=== PATIENT | female | born 1985 | race African-American/Black ===

== ENCOUNTER 2017-03-24 06:21 | Emergency (ER) | payer MEDICAID ==
[2016-01-11 14:29] VITALS: BMI 39.0
[~2017-03-24 06:21] MED LIST: ASPIRIN325 MG PO; NORVASC5 MG PO
== END 2017-03-24 07:54 | disposition home or self-care (01) ==
LOC: D.ER 06:21
DX: J20.9 Acute bronchitis, unspecified (principal); R09.1 Pleurisy; I10 Essential (primary) hypertension; F17.200 Nicotine dependence, unspecified, uncomplicated

== ENCOUNTER 2017-03-25 04:40 | Emergency (ER) | payer MEDICAID ==
[2016-01-11 14:29] VITALS: BMI 39.0
[2017-03-25 05:58] LABS: BASOPHILS 0.4 % (0-2); EOSINOPHILS 0.5 % (0-7); HEMATOCRIT 38.4 % (36.0-48.0); HEMOGLOBIN 12.9 g/dL (12-16); IMMATURE GRANULOCYTES 0.3 % (0-5); LYMPHOCYTES 24.9 % (15-50); MCHC 33.6 g/dL (31.0-37.0); MCV 95.3 fL (80.0-100.0); MEAN PLATELET VOLUME 10.7 fL (7.4-10.4); NEUTROPHILS 65.9 % (40-80); RBC 4.03 10x6/uL (4.00-5.40); RDW 13.4 % (11.5-14.5); WBC 7.3 10x3/uL (4.8-10.8)
[2017-03-25 06:07] LABS: PLATELET COUNT 244 10x3/uL (130-400)
[2017-03-25 06:16] LABS: ALBUMIN 3.6 g/dL (3.4-5.0); ALKALINE PHOSPHATASE 53 U/L (46-116); ALT (SGPT) 31 U/L (10-68); CALC OSMOLALITY 283 mosm/kg (275-300); CALCIUM 8.3 mg/dL (8.5-10.1); CARBON DIOXIDE 23.9 mmol/L (21.0-32.0); CHLORIDE - SERUM 109 mmol/L (98-107); CREATININE - SERUM 1.2 mg/dL (0.6-1.3); GLUCOSE 96 mg/dL (74-106); PROTEIN - SERUM 6.8 g/dL (6.4-8.2); SODIUM 142 mmol/L (136-145); UREA NITROGEN 14 mg/dL (7-18); eGFR NON AFRICAN AMERICAN 55 mL/min (90-120)
[2017-03-25 06:27] LABS: CKMB 1.4 U/L (0.0-3.6); CREATINE KINASE 151 UL (21-215); TROPONIN-I < 0.017 ng/mL (0.000-0.060)
== END 2017-03-25 06:30 | disposition home or self-care (01) ==
LOC: D.ER 04:40
PROVIDERS: Emergency Medicine
DX: R09.1 Pleurisy (principal); I10 Essential (primary) hypertension; F17.200 Nicotine dependence, unspecified, uncomplicated

== ENCOUNTER 2017-03-29 00:19 | Emergency (ER) | payer MEDICAID ==
[2016-01-11 14:29] VITALS: BMI 39.0
== END 2017-03-29 01:32 | disposition home or self-care (01) ==
LOC: D.ER 00:19
DX: J20.9 Acute bronchitis, unspecified (principal); J01.90 Acute sinusitis, unspecified; F17.200 Nicotine dependence, unspecified, uncomplicated; I10 Essential (primary) hypertension

== ENCOUNTER 2017-09-30 10:17 | Emergency (ER) | payer SELFPAY ==
[2016-01-11 14:29] VITALS: BMI 39.0
== END 2017-09-30 13:31 | disposition home or self-care (01) ==
LOC: D.ER 10:17
DX: S69.92XA Unspecified injury of left wrist, hand and finger(s), initial encounter (principal); X58.XXXA Exposure to other specified factors, initial encounter; Y93.89 Activity, other specified; Y92.019 Unspecified place in single-family (private) house as the place of occurrence of the external cause; I10 Essential (primary) hypertension

== ENCOUNTER 2017-10-30 07:53 | Emergency (ER) | payer MEDICAID ==
[2016-01-11 14:29] VITALS: BMI 39.0
== END 2017-10-30 09:38 | disposition home or self-care (01) ==
LOC: D.ER 07:53
DX: J06.9 Acute upper respiratory infection, unspecified (principal); F17.200 Nicotine dependence, unspecified, uncomplicated

== ENCOUNTER 2017-11-21 09:40 | Emergency (ER) | payer MEDICAID | END 2017-11-21 11:39 | disposition home or self-care (01) | LOC: D.ER 09:40 | DX: J11.1 Influenza due to unidentified influenza virus with other respiratory manifestations (principal); B34.9 Viral infection, unspecified; F17.200 Nicotine dependence, unspecified, uncomplicated ==

== ENCOUNTER 2018-01-22 06:34 | Emergency (ER) | payer OTHER ==
[2016-01-11 14:29] VITALS: BMI 39.0
[2018-01-22 07:37] LABS: BASOPHILS 0.4 % (0-2); EOSINOPHILS 0.6 % (0-7); HEMATOCRIT 38.9 % (36.0-48.0); HEMOGLOBIN 12.9 g/dL (12-16); LYMPHOCYTES 31.6 % (15-50); MCH 31.3 pg (26.0-34.0); MCHC 33.2 g/dL (31.0-37.0); MCV 94.4 fL (80.0-100.0); MEAN PLATELET VOLUME 10.3 fL (7.4-10.4); MONOCYTES 9.9 % (2-11); NEUTROPHILS 57.5 % (40-80); RBC 4.12 10x6/uL (4.00-5.40); RDW 13.9 % (11.5-14.5); WBC 5.3 10x3/uL (4.8-10.8)
[2018-01-22 07:39] LABS: PLATELET COUNT 310 10x3/uL (130-400)
[2018-01-22 07:47] LABS: INR 0.97 (0.85-1.17); PROTIME 12.5 SECONDS (11.6-15.0)
[2018-01-22 07:49] LABS: APTT 30.4 SECONDS (22.8-39.4)
[2018-01-22 07:50] LABS: D-DIMER-QUANTITATIVE < 0.27 ug/mLFEU (0.20-0.54)
[2018-01-22 07:52] LABS: ALBUMIN 3.4 g/dL (3.4-5.0); ALKALINE PHOSPHATASE 50 U/L (46-116); ALT (SGPT) 36 U/L (10-68); BILIRUBIN - TOTAL 0.41 mg/dL (0.2-1.3); CALC OSMOLALITY 274 mosm/kg (275-300); CALCIUM 8.2 mg/dL (8.5-10.1); CARBON DIOXIDE 24.2 mmol/L (21.0-32.0); CHLORIDE - SERUM 106 mmol/L (98-107); CREATININE - SERUM 0.6 mg/dL (0.6-1.3); GLUCOSE 87 mg/dL (74-106); PROTEIN - SERUM 7.1 g/dL (6.4-8.2); SODIUM 139 mmol/L (136-145); UREA NITROGEN 8 mg/dL (7-18); eGFR NON AFRICAN AMERICAN > 90 mL/min (90-120)
[2018-01-22 07:53] LABS: POTASSIUM - SERUM 5.2 mmol/L (3.5-5.1)
[2018-01-22 08:04] LABS: CKMB 0.3 U/L (0.0-3.6); CREATINE KINASE 185 UL (21-215); TROPONIN-I < 0.017 ng/mL (0.000-0.060)
== END 2018-01-22 11:02 | disposition home or self-care (01) ==
LOC: D.ER 06:34
PROVIDERS: Emergency Medicine; Family Medicine
DX: J20.9 Acute bronchitis, unspecified (principal); R07.9 Chest pain, unspecified; F17.200 Nicotine dependence, unspecified, uncomplicated; R05 Cough

== ENCOUNTER 2018-02-01 11:25 | Emergency (ER) | payer OTHER ==
[2016-01-11 14:29] VITALS: BMI 39.0
[2018-02-01 12:03] LABS: BASOPHILS 0.4 % (0-2); EOSINOPHILS 0.8 % (0-7); HEMATOCRIT 36.8 % (36.0-48.0); HEMOGLOBIN 12.3 g/dL (12-16); IMMATURE GRANULOCYTES 0.2 % (0-5); MCH 31.7 pg (26.0-34.0); MCHC 33.4 g/dL (31.0-37.0); MCV 94.8 fL (80.0-100.0); MONOCYTES 6.5 % (2-11); NEUTROPHILS 48.1 % (40-80); PLATELET COUNT 254 10x3/uL (130-400); RBC 3.88 10x6/uL (4.00-5.40); RDW 13.8 % (11.5-14.5); WBC 4.8 10x3/uL (4.8-10.8)
[2018-02-01 12:24] LABS: ALBUMIN 3.2 g/dL (3.4-5.0); ALKALINE PHOSPHATASE 47 U/L (46-116); ALT (SGPT) 27 U/L (10-68); CALC OSMOLALITY 282 mosm/kg (275-300); CALCIUM 8.4 mg/dL (8.5-10.1); CARBON DIOXIDE 24.9 mmol/L (21.0-32.0); CHLORIDE - SERUM 109 mmol/L (98-107); CREATININE - SERUM 0.7 mg/dL (0.6-1.3); GLUCOSE 91 mg/dL (74-106); POTASSIUM - SERUM 3.7 mmol/L (3.5-5.1); PROTEIN - SERUM 6.2 g/dL (6.4-8.2); SODIUM 143 mmol/L (136-145); UREA NITROGEN 7 mg/dL (7-18); eGFR NON AFRICAN AMERICAN > 90 mL/min (90-120)
[2018-02-01 12:35] LABS: CHOL - HDL RATIO 2.7 ratio (2.3-4.1); CHOLESTEROL, TOTAL 145 mg/dL (0-200); CKMB 0.7 U/L (0.0-3.6); CREATINE KINASE 70 UL (21-215); HDL CHOLESTEROL 53 mg/dL (32-96); LDL CHOLESTEROL 85 mg/dL (0-100); LDL-HDL RATIO 1.6 ratio (1.5-3.5); TRIGLYCERIDE 36 mg/dL (30-200); TROPONIN-I < 0.017 ng/mL (0.000-0.060)
== END 2018-02-01 13:20 | disposition home or self-care (01) ==
LOC: D.ER 11:25
PROVIDERS: Emergency Medicine
DX: R07.89 Other chest pain (principal); F17.200 Nicotine dependence, unspecified, uncomplicated

== ENCOUNTER 2018-04-24 18:02 | Emergency (ER) | payer SELFPAY ==
[~2018-04-24] VITALS: Ht 160 cm; Wt 90.9 kg
[2018-04-24 18:28] VITALS: Ht 160 cm; Wt 90.9 kg
[2018-04-24] MEDS ORDERED: TORADOL10 MG PO (21:21)
[2018-04-24 21:43] VITALS: BP 120/77
== END 2018-04-24 21:44 | disposition home or self-care (01) ==
LOC: D.ER 18:02
DX: S83.91XA Sprain of unspecified site of right knee, initial encounter (principal); W10.9XXA Fall (on) (from) unspecified stairs and steps, initial encounter; Y93.89 Activity, other specified; Y92.019 Unspecified place in single-family (private) house as the place of occurrence of the external cause; I10 Essential (primary) hypertension; F17.200 Nicotine dependence, unspecified, uncomplicated

== ENCOUNTER 2018-04-30 08:34 | Emergency (ER) | payer SELFPAY ==
[~2018-04-30] VITALS: Ht 160 cm; Wt 90.9 kg
[~2018-04-30 08:34] MED LIST changes: +TORADOL10 MG PO
[2018-04-30 08:52] VITALS: Ht 160 cm; Wt 90.9 kg
[2018-04-30 09:29] LABS: BASOPHILS 0.3 % (0-2); EOSINOPHILS 0.3 % (0-7); HEMATOCRIT 36.6 % (36.0-48.0); HEMOGLOBIN 12.4 g/dL (12-16); IMMATURE GRANULOCYTES 0.3 % (0-5); LYMPHOCYTES 22.5 % (15-50); MCHC 33.9 g/dL (31.0-37.0); MCV 94.3 fL (80.0-100.0); NEUTROPHILS 70.6 % (40-80); PLATELET COUNT 289 10x3/uL (130-400); RBC 3.88 10x6/uL (4.00-5.40); RDW 13.4 % (11.5-14.5); WBC 6.5 10x3/uL (4.8-10.8)
[2018-04-30 09:42] LABS: HCG SERUM NEGATIVE (NEGATIVE)
[2018-04-30 09:47] LABS: ALBUMIN 3.6 g/dL (3.4-5.0); ALKALINE PHOSPHATASE 56 U/L (46-116); ALT (SGPT) 32 U/L (10-68); BILIRUBIN - TOTAL 0.59 mg/dL (0.2-1.3); CALC OSMOLALITY 276 mosm/kg (275-300); CALCIUM 8.5 mg/dL (8.5-10.1); CARBON DIOXIDE 28.3 mmol/L (21.0-32.0); CHLORIDE - SERUM 107 mmol/L (98-107); CREATININE - SERUM 0.6 mg/dL (0.6-1.3); GLUCOSE 90 mg/dL (74-106); POTASSIUM - SERUM 3.6 mmol/L (3.5-5.1); PROTEIN - SERUM 6.8 g/dL (6.4-8.2); SODIUM 140 mmol/L (136-145); UREA NITROGEN 8 mg/dL (7-18); eGFR NON AFRICAN AMERICAN > 90 mL/min (90-120)
[2018-04-30] MEDS ORDERED: HYDROCODONE-APA1 TAB PO (11:30)
[2018-04-30 12:48] VITALS: BP 125/72
== END 2018-04-30 13:11 | disposition home or self-care (01) ==
LOC: D.ER 08:34
PROVIDERS: Family Medicine
DX: S82.141A Displaced bicondylar fracture of right tibia, initial encounter for closed fracture (principal); W19.XXXA Unspecified fall, initial encounter; Y93.89 Activity, other specified; Y92.019 Unspecified place in single-family (private) house as the place of occurrence of the external cause; I10 Essential (primary) hypertension; F17.200 Nicotine dependence, unspecified, uncomplicated

== ENCOUNTER 2018-05-28 22:16 | Emergency (ER) | payer SELFPAY ==
[~2018-05-28] VITALS: Ht 157.5 cm; Wt 90.9 kg
[~2018-05-28 22:16] MED LIST changes: +HYDROCODONE-APA1 TAB PO
[2018-05-28 22:20] VITALS: Ht 157.5 cm; Wt 90.9 kg
[2018-05-29] MEDS ORDERED: ULTRAM50 MG PO (00:56)
[2018-05-29 01:28] VITALS: BP 132/85
== END 2018-05-29 01:23 | disposition home or self-care (01) ==
LOC: D.ER 22:16
DX: S83.91XA Sprain of unspecified site of right knee, initial encounter (principal); X50.1XXA Overexertion from prolonged static or awkward postures, initial encounter; Y93.89 Activity, other specified; Y92.019 Unspecified place in single-family (private) house as the place of occurrence of the external cause; F17.200 Nicotine dependence, unspecified, uncomplicated

== ENCOUNTER 2019-04-05 08:05 | Emergency (ER) | payer MEDICAID ==
[~2019-04-05 08:05] MED LIST changes: +ULTRAM50 MG PO
[2019-04-05 08:10] VITALS: BMI 37.6
[2019-04-05 08:50] LABS: BASOPHILS 0.2 % (0-2); EOSINOPHILS 0.2 % (0-7); HEMATOCRIT 36.9 % (36.0-48.0); HEMOGLOBIN 12.7 g/dL (12-16); IMMATURE GRANULOCYTES 0.2 % (0-5); LYMPHOCYTES 10.3 % (15-50); MCH 31.8 pg (26.0-34.0); MCHC 34.4 g/dL (31.0-37.0); MCV 92.5 fL (80.0-100.0); MEAN PLATELET VOLUME 9.9 fL (7.4-10.4); MONOCYTES 8.8 % (2-11); NEUTROPHILS 80.3 % (40-80); PLATELET COUNT 292 10x3/uL (130-400); RBC 3.99 10x6/uL (4.00-5.40); RDW 13.1 % (11.5-14.5); WBC 13.2 10x3/uL (4.8-10.8)
[2019-04-05 08:59] LABS: ALBUMIN 3.6 g/dL (3.4-5.0); ALKALINE PHOSPHATASE 67 U/L (46-116); ALT (SGPT) 24 U/L (10-68); BILIRUBIN - TOTAL 1.06 mg/dL (0.2-1.3); CALC OSMOLALITY 277 mosm/kg (275-300); CALCIUM 9.1 mg/dL (8.5-10.1); CARBON DIOXIDE 25.4 mmol/L (21.0-32.0); CHLORIDE - SERUM 105 mmol/L (98-107); CREATININE - SERUM 0.7 mg/dL (0.6-1.3); GLUCOSE 100 mg/dL (74-106); POTASSIUM - SERUM 3.6 mmol/L (3.5-5.1); PROTEIN - SERUM 7.3 g/dL (6.4-8.2); SODIUM 140 mmol/L (136-145); UREA NITROGEN 9 mg/dL (7-18); eGFR NON AFRICAN AMERICAN > 90 mL/min (90-120)
[2019-04-05 09:03] LABS: AMYLASE - SERUM 30 U/L (25-115); LIPASE 50 U/L (73-393); TROPONIN-I < 0.017 ng/mL (0.000-0.060)
[2019-04-05 09:08] LABS: APPEARANCE HAZY (CLEAR); BACTERIA FEW /hpf (NONE SEEN); BILIRUBIN NEGATIVE (NEGATIVE); COLOR YELLOW (YELLOW); EPITHELIAL CELLS 0-5 /hpf (0-5); GLUCOSE NEGATIVE (NEGATIVE); KETONE NEGATIVE (NEGATIVE); NITRITE NEGATIVE (NEGATIVE); PROTEIN NEGATIVE (NEGATIVE); SPECIFIC GRAVITY 1.005 (1.005-1.020); WHITE CELLS - URINE 0-5 /hpf (0-5)
[2019-04-05 09:09] LABS: MUCUS <1+ /lpf (NONE SEEN)
[2019-04-05 09:31] LABS: HCG URINE NEGATIVE (NEGATIVE)
[2019-04-05 12:09] VITALS: BP 124/71
== END 2019-04-05 12:00 | disposition home or self-care (01) ==
LOC: D.ER 08:05
PROVIDERS: Family Medicine
DX: R10.9 Unspecified abdominal pain (principal)

== ENCOUNTER 2020-03-20 05:31 | Emergency (ER) | payer MEDICAID ==
[~2020-03-20] VITALS: Ht 157.5 cm; Wt 102.3 kg
[2020-03-20 05:33] VITALS: Ht 157.5 cm; Wt 102.3 kg
[2020-03-20 06:02] LABS: BASOPHILS 0.4 % (0-2); EOSINOPHILS 1.1 % (0-7); HEMATOCRIT 40.5 % (36.0-48.0); HEMOGLOBIN 13.6 g/dL (12-16); LYMPHOCYTES 23.1 % (15-50); MCH 31.9 pg (26.0-34.0); MCHC 33.6 g/dL (31.0-37.0); MCV 95.1 fL (80.0-100.0); MEAN PLATELET VOLUME 10.6 fL (7.4-10.4); MONOCYTES 11.4 % (2-11); PLATELET COUNT 308 10x3/uL (130-400); RBC 4.26 10x6/uL (4.00-5.40); RDW 13.4 % (11.5-14.5); WBC 5.3 10x3/uL (4.8-10.8)
[2020-03-20 06:05] LABS: HCG URINE NEGATIVE (NEGATIVE)
[2020-03-20 06:13] LABS: UDS - AMPHET POSITIVE QUAL (NEGATIVE); UDS - BARB NEGATIVE QUAL (NEGATIVE); UDS - BENZO NEGATIVE QUAL (NEGATIVE); UDS - COCAINE NEGATIVE QUAL (NEGATIVE); UDS - OPIATE NEGATIVE QUAL (NEGATIVE); UDS - PCP NEGATIVE QUAL (NEGATIVE); UDS - THC POSITIVE QUAL (NEGATIVE)
[2020-03-20 06:21] LABS: BILIRUBIN NEGATIVE (NEGATIVE); GLUCOSE NEGATIVE (NEGATIVE); KETONE NEGATIVE (NEGATIVE); NITRITE NEGATIVE (NEGATIVE); UROBILINOGEN 4 mg/dL (NORMAL)
[2020-03-20 06:22] LABS: ALBUMIN 3.6 g/dL (3.4-5.0); ALKALINE PHOSPHATASE 64 U/L (30-120); ALT (SGPT) 67 U/L (10-68); AMYLASE - SERUM 33 U/L (25-115); CALC OSMOLALITY 275 mosm/kg (275-300); CALCIUM 8.4 mg/dL (8.5-10.1); CARBON DIOXIDE 30.1 mmol/L (21.0-32.0); CHLORIDE - SERUM 103 mmol/L (98-107); CKMB 1.8 U/L (0.0-3.6); CREATINE KINASE 130 UL (21-215); CREATININE - SERUM 1.1 mg/dL (0.6-1.3); GLUCOSE 72 mg/dL (74-106); LIPASE 60 U/L (73-393); PROTEIN - SERUM 6.9 g/dL (6.4-8.2); SODIUM 139 mmol/L (136-145); THYROID STIMULATING HORMONE 0.36 uIU/mL (0.36-3.74); UREA NITROGEN 10 mg/dL (7-18); eGFR NON AFRICAN AMERICAN 60 mL/min (90-120)
[2020-03-20 06:22] LABS: EPITHELIAL CELLS 0-5 /hpf (0-5); RED CELLS - URINE RARE /hpf (0-5); WHITE CELLS - URINE 0-5 /hpf (NEGATIVE)
[2020-03-20 06:23] LABS: BACTERIA MODERATE /hpf (NEGATIVE)
[2020-03-20 06:23] LABS: TROPONIN-I < 0.017 ng/mL (0.000-0.060)
[2020-03-20 06:24] LABS: POTASSIUM - SERUM 2.8 mmol/L (3.5-5.1)
[2020-03-20] MEDS ORDERED: KLOR-CON M2020 MEQ PO (07:13)
[2020-03-20] MEDS ORDERED: ZOFRAN ODT4 MG/UDTAB PO (07:14)
[2020-03-20] MEDS ORDERED: FLAGYL500 MG PO (07:15)
[2020-03-20] MEDS ORDERED: BACTRIM DS TAB1 EAC1 PO (07:15)
[2020-03-20 08:04] VITALS: BP 140/74
== END 2020-03-20 08:06 | disposition home or self-care (01) ==
LOC: D.ER 05:31
PROVIDERS: Emergency Medicine
DX: R53.1 Weakness (principal); N76.0 Acute vaginitis; E87.6 Hypokalemia; F12.10 Cannabis abuse, uncomplicated; F15.10 Other stimulant abuse, uncomplicated; N39.0 Urinary tract infection, site not specified; R11.10 Vomiting, unspecified; I10 Essential (primary) hypertension; Z72.0 Tobacco use

== ENCOUNTER 2020-06-22 17:25 | Emergency (ER) | payer MEDICAID ==
[~2020-06-22] VITALS: Ht 210.8 cm; Wt 95.5 kg
[~2020-06-22 17:25] MED LIST changes: +BACTRIM DS TAB1 EAC1 PO; +FLAGYL500 MG PO; +KLOR-CON M2020 MEQ PO; +ZOFRAN ODT4 MG/UDTAB PO
[2020-06-22 17:43] VITALS: BP 158/93; Ht 210.8 cm; Wt 95.5 kg
== END 2020-06-22 19:00 | disposition left against medical advice (07) ==
LOC: D.ER 17:25
DX: S69.90XA Unspecified injury of unspecified wrist, hand and finger(s), initial encounter (principal)